=== PATIENT | male | born 1935 | race Caucasian/White ===

== ENCOUNTER → 2020-09-28 | Day surgery (SDC) | payer MEDICARE ==
[~2020-09-28] VITALS: Ht 180.3 cm; Wt 90.7 kg
[~2020-09-28] MED LIST: CARVEDILOL3.125 MG PO; ELIQUIS5 MG PO; KRILL OIL 1,001 EACH PO; LIPITOR40 MG PO; MULTI VITAMIN1 EACH PO
--- NOTE | ~2020-09-28 | O ---
[facility] [place] [address] OPERATIVE REPORT Name: WESTON FREY Room #: REG [facility].#: [id number] Admission: 09/28/20 Attend Phys: Monty Aguiar MD Discharge: Date of : 39 Report #: [id number] THIS REPORT FOR: cc: Isaiah Burnett MD,Monty Nascimento MD, MD ~ DOC #: [id number] cc: James Stauffer MD, MD Monty Walton MD DATE OF SERVICE: 09/28/2020 PREOPERATIVE DIAGNOSIS: Basal cell carcinoma of right lower lid and cheek. POSTOPERATIVE DIAGNOSIS: Basal cell carcinoma of right lower lid and cheek. PROCEDURE: Excision of basal cell carcinoma of right lower lid and cheek with frozen section control of margins and myocutaneous flap repair of defect. SURGEON: Monty Aguiar MD [employer] SUPERVISOR: None. ANESTHESIA: MAC. COMPLICATIONS: None. INDICATIONS FOR SURGERY: This pleasant 85-year-old gentleman presents with a biopsy proven basal cell carcinoma of his right lower lid and cheek. Today's procedure is being undertaken in order to remove the remaining tumor with frozen section, confirmation of tumor, extirpation and subsequent reconstruction of that defect. Informed consent was obtained to include but not limited to the potential risk for loss of vision, bleeding, infection, failure to improve the problem, and the potential need for further surgery or treatment. DESCRIPTION OF PROCEDURE: The patient was taken to the operating room where 2% Xylocaine with epinephrine mixed with equal parts 0.75% Marcaine with Wydase was administered transcutaneously to the right lower lid, the right medial canthus, the bridge of the nose, the right cheek and the right lateral canthus. The patient was subsequently prepped and draped in the usual sterile fashion. A fine tip skin marking pen was then utilized to outline the lesion including approximately 2 mm of normal appearing tissue around its margins. This included the entire prior biopsy site. Incisions were then made with a 15 blade and taken down to the subcutaneous muscular layer. Hemostasis was achieved with diligent pinpoint monopolar cautery. The specimen was then excised deeply utilizing Lyndon scissors. It was then oriented on a drawing for the [address] [address] OPERATIVE REPORT Name: SHANTEWESTON Matti Room #: REG [facility].#: [id number] Admission: 09/28/20 Attend Phys: Monty Aguiar MD Discharge: Date of : 39 Report #: [id number] pathologist as hemostasis was achieved in the field. The pathologist snap froze that tissue and found that our margins were clear. A myocutaneous flap was then developed inferolaterally to be rotated superomedially. Hemostasis was then re-achieved. The flap was then advanced and secured with multiple interrupted 6-0 plain gut sutures. The wounds were then cleaned and dressed with erythromycin ophthalmic ointment. The patient subsequently transported to the recovery area, having tolerated the procedures well with no anesthetic or operative complications being noted. MD MARSHALL Nicole/YMAILA By: 0913 [id number] Monty Aguiar MD /nt
[2020-09-28 09:00] VITALS: BP 149/93
--- NOTE | 2020-09-29 14:07 | PATH ---
[facility] [place] [address] PATHOLOGY RPT PROCEDURE Name: WESTON FREY Room #: REG [facility]..#: [id number] Admission: 09/28/20 Date of : 39 Discharge: Report #: [id number] Path Case #: [id number] [facility] Accession Number: [id number] . 01 Material submitted: . lid - RIGHT LOWER LID LESION FS. Modifiers: right, lower . 01 Clinical history: . EXCISION BASAL CELL CARCINOMA BCCA . 02 Frozen section diagnosis: . INTRAOPERATIVE CONSULTATION WITH FROZEN SECTION: (Dr. Jhoana iWlson) . FSA1. Right lower lid lesion, excision: - Negative for invasive carcinoma at margins on FS slide. . These findings are discussed with Dr. Monty Aguiar in OR6 and a written report is placed in the patient's chart. (IUV:mml; 09/28/2020) . . FROZEN SECTION GROSS DESCRIPTION: Received fresh from the OR labeled, "Weston Frey - Right lower lid lesion" is an oriented ellipse of skin measuring 1.7 x 0.6 x 0.6 cm. It is oriented as superior, medial, inferior and lateral. The inferior margin is inked black, the lateral to superior margin is inked blue, and the superior to medial margin is inked green. The deep margin is inked black. At this point the specimen is serially sectioned and entirely submitted for frozen section as FSA1, subsequently submitted for permanent section as A1. (IUV:mml; 09/28/2020) . . Frozen section performed at [facility], [address], [place] [address]. IZV/QLM . 02 Diagnosis: Skin, right lower lid lesion, excision: - Hyperkeratotic actinic keratosis. - No residual basal cell carcinoma present. - Margins free of malignancy. . (IUV:mml; 09/29/2020) QLM 09/29/2020 1123 Local [facility] [address] [place] [address] PATHOLOGY RPT PROCEDURE Name: WESTON FREY Room #: REG [facility] MMary.#: [id number] Admission: 09/28/20 Date of : 39 Discharge: Report #: [id number] Path Case #: [id number] . 02 Electronically signed: . Jhoana Wilson MD, Pathologist NPI- [id number] . 01 Gross description: . PLEASE SEE FROZEN SECTION GROSS DESCRIPTION /QLM 09/28/2020 1234 Local . 02 Pathologist provided ICD-10: L57.0, C44.1122 . 02 CPT . 478868, [id number] Specimen Comment: A courtesy copy of this report has been sent to [phone] Specimen Comment: [phone] Specimen Comment: Report sent to / DR LANDERS Performed at: [address], [place] [id number] MD Ty Alexander MD Phone: [phone] Performed at: [address] [id number] MD Jhoana Wilson MD Phone: [phone]
== END | disposition home or self-care (01) ==
LOC: OR 07:20
PROVIDERS: ATTEND Ophthalmology
DX: L57.0 Actinic keratosis (principal); I10 Essential (primary) hypertension; J43.9 Emphysema, unspecified; Z98.890 Other specified postprocedural states; Z79.899 Other long term (current) drug therapy; Z87.891 Personal history of nicotine dependence; Z85.828 Personal history of other malignant neoplasm of skin; Z85.46 Personal history of malignant neoplasm of prostate; Z96.653 Presence of artificial knee joint, bilateral; Z98.41 Cataract extraction status, right eye; Z98.42 Cataract extraction status, left eye
CPT/HCPCS: 50010; 50101; 50386; 50398; 51636; 56531; 62110; 62850; 70005